=== PATIENT | male | born 1965 | race African-American/Black ===

== ENCOUNTER 2024-09-20 10:33 | Outpatient (CLI) | payer OTHER, SELFPAY ==
--- NOTE | ~2024-09-20 | MR_ITS ---
MRI of the right knee Clinical history: Pain Technique: Coronal proton density and proton density-weighted images, sagittal proton-density and T2 fat-sat images, and axial proton-density fat-saturated images were acquired. Findings: Anterior and posterior cruciate ligaments are intact. Medial collateral ligament and the la teral collateral ligament complex are intact. Popliteus tendon is intact. Medial and lateral menisci are intact, without evidence of tear. Articular cartilage demonstrates areas of mild degenerative change, probably worst at the central asp ect of the medial femoral condyle. Bone marrow signals are unremarkable. Extensor mechanism is intact. No significant joint effusion or Dyer's cyst. Impression: Scattered areas of mild chondromalacia, worst at the central aspect of the medial femoral condyle. No ligamentous injury or meniscal tear. Reviewed, dictated and finalized at [facility]. [employer] Impression: Scattered areas of mild chondromalacia, worst at the central aspect of the medi al femoral condyle. No ligamentous injury or meniscal tear.
== END 2024-09-20 10:34 | disposition home or self-care (01) ==
LOC: MICIMG 10:38
PROVIDERS: PCP Orthopaedic Surgery; Visit Provider Orthopaedic Surgery
DX: M25.561 Pain in right knee (principal)
CPT/HCPCS: 73721